=== PATIENT | male | born 1995 | race Native Hawaiian/Other Pacific Islander ===

== ENCOUNTER 2019-07-13 19:55 | Emergency (ER) | payer OTHER ==
[~2019-07-13] VITALS: Ht 180.3 cm; Wt 99.8 kg
[2019-07-13 20:43] LABS: PLATELET COUNT 220 K/uL (142-355)
[2019-07-13 21:06] LABS: POTASSIUM 3.8 mmol/L (3.6-5.2)
[2019-07-13 23:42] VITALS: BP 150/101; TEMP 98.7
== END 2019-07-13 23:42 ==
LOC: ED 19:55
PROVIDERS: Family Medicine
DX: R10.84 Generalized abdominal pain (principal); G89.18 Other acute postprocedural pain
CPT/HCPCS: 36415; 80053; 81000; 82150; 83690; 85027; 96372; 99283; J1885; Q9963